=== PATIENT | female | born 2000 | race Caucasian/White ===

== ENCOUNTER 2020-04-12 06:12 | Emergency (ER) | payer BC, OTHER ==
[~2020-04-12] VITALS: Ht 172.7 cm; Wt 77.3 kg
[~2020-04-12 06:12] MED LIST: ALL10TAB29 PO; AUGM875T28 PO; BENA25CA4 PO; IBUP-1114 PO; LIDVISCBTL SSP; MAPA500T2 PO; PRENTAB9 PO
[2020-04-12] MEDS: ACETAMINOPHEN 500 MG TAB PO ONE (07:16)
[2020-04-12 07:28] VITALS: BP 113/85
== END 2020-04-12 07:29 | disposition home or self-care (01) ==
LOC: M ED 06:12
DX: S39.012A Strain of muscle, fascia and tendon of lower back, initial encounter (principal); X50.9XXA Other and unspecified overexertion or strenuous movements or postures, initial encounter; Y92.129 Unspecified place in nursing home as the place of occurrence of the external cause; Z91.040 Latex allergy status

== ENCOUNTER 2020-10-19 17:56 | Emergency (ER) | payer OTHER ==
[~2020-10-19] VITALS: Ht 172.7 cm; Wt 80.9 kg
[~2020-10-19 17:56] MED LIST changes: -ALL10TAB29 PO; +CETI-24 PO
[2020-10-19 20:37] LABS: CK-MB VALUE MASS < 1.0 NG/ML (<3.6); CPK CREATINE PHOSPHOKINASE 91 U/L (26-192); TROPONIN I < 0.02 NG/ML (< 0.10)
--- NOTE | 2020-10-19 20:47 | ECGEPIP ---
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
[2020-10-19 20:51] LABS: BASO % 0.2 % (0.0-1.0); EOS # 0.1 10^3/uL (0.0-0.5); EOS % 0.7 % (0.0-3.0); HEMATOCRIT 42.1 % (36.0-47.0); HEMOGLOBIN 13.7 g/dl (12.0-15.5); LYMPH % 16.2 % (24.0-44.0); MEAN CORPUSCULAR HEMOGLOBIN 28.5 pg (27.0-33.0); MEAN CORPUSCULAR HGB CONC 32.5 g/dl (32.0-36.5); MEAN CORPUSCULAR VOLUME 87.7 fl (80.0-96.0); MONO # 0.6 10^3/uL (0.0-0.8); MONO % 4.7 % (0.0-5.0); NEUTROPHILS # 9.5 10^3/uL (1.5-8.5); NEUTROPHILS % 77.8 % (36.0-66.0); PLATELET COUNT, AUTOMATED 293 10^3/uL (150-450); WHITE BLOOD COUNT 12.2 10^3/uL (4.0-10.0)
[2020-10-19 21:05] LABS: ALBUMIN 3.6 GM/DL (3.2-5.2); ALT/SGPT 20 U/L (12-78); BILIRUBIN,DIRECT 0.2 MG/DL (0.0-0.2); BILIRUBIN,TOTAL 0.9 MG/DL (0.2-1.0); BLOOD UREA NITROGEN 5 MG/DL (7-18); CALCIUM LEVEL 9.4 MG/DL (8.5-10.1); CARBON DIOXIDE LEVEL 25 MEQ/L (21-32); CHLORIDE LEVEL 107 MEQ/L (98-107); CREATININE FOR GFR 0.82 MG/DL (0.55-1.30); GLOMERULAR FILTRATION RATE > 60.0 (>60); GLUCOSE, FASTING 91 MG/DL (70-100); LIPASE 74 U/L (73-393); POTASSIUM SERUM 4.7 MEQ/L (3.5-5.1); SODIUM LEVEL 138 MEQ/L (136-145); TOTAL PROTEIN 7.4 GM/DL (6.4-8.2)
[2020-10-19 21:07] LABS: HCG, SERUM QUALITATIVE POSITIVE (NEGATIVE)
[2020-10-19 21:46] LABS: HCG, SERUM QUANTITATIVE 1876 MIU/ML
--- NOTE | 2020-10-19 23:10 | REPVR ---
PROCEDURE INFORMATION: Exam: US First Trimester, Transabdominal Exam date and time: 10/19/2020 10:54 PM Age: 20 years old Clinical indication: complicated by abdominal or pelvic pain; Left lower quadrant; First trimester; Gestational age or lmp: Unknown; ; Additional info: Llq abd pain, +preg TECHNIQUE: Imaging protocol: Real-time transabdominal obstetrical ultrasound of the maternal pelvis and a first trimester , less than 14 weeks 0 days, with image documentation. COMPARISON: No relevant prior studies available. FINDINGS: Gestation: There is a small ovoid fluid collection within the endometrium with no yolk sac or pole seen. Mean sac size is 3 mm suggesting an age of 4 weeks 6 days. MATERNAL: Uterus: TheThe uterus measures 8.4 cm in its cephalocaudad dimension and 4.4 x 5.1 cm in its AP and lateral dimensions. The endometrium measures 10 mm. Cervix: Unremarkable. Right adnexa: The right ovary measures 3.0 x 1.8 x 2.4 cm and demonstrates normal blood flow. Left adnexa: The left ovary measures 3.6 x 2.3 x 2.4 cm with a complex nodule measuring 1.9 x 2.0 x 1.7 cm. There is left ovarian blood flow. Intraperitoneal space: No intraperitoneal free fluid. IMPRESSION: 1. Small ovoid fluid collection within the endometrium which may reflect an early gestational sac which by size suggests an age of 4 weeks 6 days. No yolk sac or pole is seen. Follow-up ultrasound in 2 weeks may be of benefit for further evaluation. 2. Question of right ovarian corpus luteum cyst. Electronically signed by: Kin Barrera On 10/19/2020 23:10:11 PM
[2020-10-19 23:40] VITALS: BP 123/73
== END 2020-10-19 23:46 | disposition home or self-care (01) ==
LOC: M ED 17:56
DX: O26.899 Other specified pregnancy related conditions, unspecified trimester (principal); O99.891 Other specified diseases and conditions complicating pregnancy; R07.89 Other chest pain; R07.1 Chest pain on breathing; Z91.040 Latex allergy status
CPT/HCPCS: 76801; 80048; 80076; 81001; 82550; 82553; 83605; 83690; 84702; 84703; 85025; 85379; 93005; 99284; U0002

== ENCOUNTER 2020-11-17 06:19 | Emergency (ER) | payer OTHER ==
[~2020-11-17] VITALS: Ht 175.3 cm; Wt 79.5 kg
[2020-11-17 07:07] LABS: APPEARANCE, URINE HAZY (CLEAR); BACTERIA, URINE AUTO 1+ (NEGATIVE); BILIRUBIN, URINE AUTO NEGATIVE (NEGATIVE); BLOOD, URINE BLOOD NEGATIVE (NEGATIVE); COLOR, URINE STRAW (YELLOW); GLUCOSE, URINE (UA) AUTO NEGATIVE (NEGATIVE); KETONE, URINE AUTO NEGATIVE (NEGATIVE); LEUKOCYTE ESTERASE, URINE AUTO 1+ (NEGATIVE); NITRITE, URINE AUTO NEGATIVE (NEGATIVE); PROTEIN, URINE AUTO NEGATIVE (NEGATIVE); RBC, URINE AUTO 3 /HPF (0-3); SPECIFIC GRAVITY URINE AUTO 1.004 (1.002-1.035); SQUAMOUS EPITHELIAL CELL UR AU 9 /HPF (0-6); UROBILINOGEN, URINE AUTO 0.2 mg/dL (0.0-2.0); WBC, URINE AUTO 7 /HPF (0-3)
--- NOTE | 2020-11-17 07:36 | REPVR ---
PROCEDURE INFORMATION: Exam: US First Trimester, Transabdominal Exam date and time: 11/17/2020 7:23 AM Age: 20 years old Clinical indication: Pain and injury or trauma; Other: Hit by PT; Work related; Blunt trauma; Lower; complicated by abdominal or pelvic pain; First trimester; Gestational age or lmp: 9; Injury date: 11/17/2020; ; Additional info: Cramping, 1st trimester, HX miscarriage TECHNIQUE: Imaging protocol: Real-time transabdominal obstetrical ultrasound of the maternal pelvis and a first trimester , less than 14 weeks 0 days, with image documentation. COMPARISON: 1ST TRIMESTER US 10/19/2020 10:41 PM FINDINGS: Gestation: Single intrauterine gestational sac. Embryonic/ heart rate: 157 bpm. Placenta: Adjacent to the gestational sac on the right is a 1.9 x 1.3 x 0.6 cm anechoic focus which could represent subchorionic hemorrhage. BIOMETRY: Gestational age (AUA): pole with mean crown-rump length of 21.6 mm, corresponding to an estimated gestational age of 8 weeks 6 days. MATERNAL: Uterus: Unremarkable. Right adnexa: The right ovary measures 1.5 x 2.0 cm and appears unremarkable. Left adnexa: The left ovary measures 3.0 x 2.8 x 2.0 cm and appears unremarkable. Intraperitoneal space: No demonstrated free fluid. IMPRESSION: Single viable intrauterine gestation with estimated gestational age of 8 weeks 6 days. Small anechoic focus adjacent to the gestational sac could represent subchorionic hemorrhage. Recommend follow-up. Electronically signed by: Hudson Wynn On 11/17/2020 07:36:13 AM
[2020-11-17 08:06] VITALS: BP 117/71
== END 2020-11-17 07:59 | disposition home or self-care (01) ==
LOC: M ED 06:19
DX: O26.891 Other specified pregnancy related conditions, first trimester (principal); Z3A.08 8 weeks gestation of pregnancy; Z91.040 Latex allergy status

== ENCOUNTER 2021-05-22 11:54 | Outpatient (CLI) | payer OTHER ==
[~2021-05-22] VITALS: Ht 172.7 cm; Wt 85.1 kg
[2021-05-22 12:33] VITALS: BP 88/54
[2021-05-22 14:59] LABS: APPEARANCE, URINE HAZY (CLEAR); BACTERIA, URINE AUTO 2+ (NEGATIVE); BILIRUBIN, URINE AUTO NEGATIVE (NEGATIVE); BLOOD, URINE BLOOD NEGATIVE (NEGATIVE); COLOR, URINE YELLOW (YELLOW); GLUCOSE, URINE (UA) AUTO NEGATIVE (NEGATIVE); KETONE, URINE AUTO NEGATIVE (NEGATIVE); LEUKOCYTE ESTERASE, URINE AUTO 3+ (NEGATIVE); NITRITE, URINE AUTO NEGATIVE (NEGATIVE); PROTEIN, URINE AUTO NEGATIVE (NEGATIVE); RBC, URINE AUTO 2 /HPF (0-3); SPECIFIC GRAVITY URINE AUTO 1.002 (1.002-1.035); SQUAMOUS EPITHELIAL CELL UR AU 7 /HPF (0-6); UROBILINOGEN, URINE AUTO 0.2 mg/dL (0.0-2.0); WBC, URINE AUTO 18 /HPF (0-3)
[2021-05-22] MEDS ORDERED: CEPHALEXIN 500 MG CAP PO SCH (16:05)
[2021-05-22 16:13] VITALS: BP 94/52
[2021-05-22 16:39] LABS: HEMATOCRIT 33.3 % (36.0-47.0); HEMOGLOBIN 11.1 g/dl (12.0-15.5); MEAN CORPUSCULAR HEMOGLOBIN 30.4 pg (27.0-33.0); MEAN CORPUSCULAR HGB CONC 33.3 g/dl (32.0-36.5); MEAN CORPUSCULAR VOLUME 91.2 fl (80.0-96.0); PLATELET COUNT, AUTOMATED 193 10^3/uL (150-450); RED BLOOD COUNT 3.65 10^6/uL (4.00-5.40)
[2021-05-22] MEDS ORDERED: PRENTAB9 PO (16:53)
[2021-05-22 16:59] LABS: ALBUMIN 2.6 GM/DL (3.2-5.2); ALT/SGPT 13 U/L (12-78); BILIRUBIN,TOTAL 0.6 MG/DL (0.2-1.0); BLOOD UREA NITROGEN 4 MG/DL (7-18); CALCIUM LEVEL 8.2 MG/DL (8.5-10.1); CARBON DIOXIDE LEVEL 28 MEQ/L (21-32); CHLORIDE LEVEL 108 MEQ/L (98-107); CREATININE FOR GFR 0.58 MG/DL (0.55-1.30); GLOMERULAR FILTRATION RATE > 60.0 (>60); GLUCOSE, FASTING 101 MG/DL (70-100); POTASSIUM SERUM 3.9 MEQ/L (3.5-5.1); SODIUM LEVEL 140 MEQ/L (136-145); TOTAL PROTEIN 5.6 GM/DL (6.4-8.2)
[2021-05-22 17:13] LABS: HEMOGLOBIN A1c 4.7 %
[2021-05-22] MEDS ORDERED: CEPH500C PO (17:21)
--- NOTE | 2021-05-22 17:48 | IPNPDOC ---
Text Note Date of Service The patient was seen on 05/22/21. NOTE Outpatient 21yo G [id number] TARIQ 06/23/2021 presents @ 35w3d from work with reports of dizziness, nausea, vomiting and vaginal pressure. "Almost passed out." Reports only eating a donut today and "2 gallons water." Cat I tracing, rare UC Bedside sono shows breech presentation UA + evidence UTI Bloodwork essentially WNL, no significant anemia Keflex PO started, script sent to pharmacy with instructions Discharged home. Keep appt next week. VS,Fishbone, I+O VS, Fishbone, I+O Laboratory Tests 05/22/21 16:18 Vital Signs Date Time Temp Pulse Resp B/P (MAP) Pulse Ox O2 Delivery O2 Flow Rate FiO2 05/22/21 16:13 98.0 85 16 94/52 (66) Elke Corley CNM May 22, 2021 17:48
== END 2021-05-22 17:26 | disposition home or self-care (01) ==
LOC: M LDO 11:54
PROVIDERS: ATTEND Advanced Practice Midwife
DX: O23.593 Infection of other part of genital tract in pregnancy, third trimester (principal); O21.8 Other vomiting complicating pregnancy; Z3A.35 35 weeks gestation of pregnancy; O26.893 Other specified pregnancy related conditions, third trimester; R42 Dizziness and giddiness; O32.1XX0 Maternal care for breech presentation, not applicable or unspecified; Z91.040 Latex allergy status; Z79.899 Other long term (current) drug therapy

== ENCOUNTER → 2021-05-29 | Outpatient (CLI) | payer OTHER ==
[~2021-05-29] MED LIST changes: +CEPH500C PO
[2021-05-29 10:44] LABS: BASO % 0.4 % (0.0-1.0); EOS # 0.1 10^3/uL (0.0-0.5); EOS % 1.4 % (0.0-3.0); HEMATOCRIT 33.1 % (36.0-47.0); HEMOGLOBIN 10.9 g/dl (12.0-15.5); LYMPH # 1.4 10^3/uL (1.5-5.0); LYMPH % 18.4 % (24.0-44.0); MEAN CORPUSCULAR HGB CONC 32.9 g/dl (32.0-36.5); MEAN CORPUSCULAR VOLUME 91.2 fl (80.0-96.0); MONO # 0.4 10^3/uL (0.0-0.8); MONO % 5.4 % (2.0-8.0); NEUTROPHILS # 5.7 10^3/uL (1.5-8.5); NEUTROPHILS % 73.2 % (36.0-66.0); PLATELET COUNT, AUTOMATED 172 10^3/uL (150-450); RED BLOOD COUNT 3.63 10^6/uL (4.00-5.40); WHITE BLOOD COUNT 7.7 10^3/uL (4.0-10.0)
== END ==
LOC: M LAB 08:30
PROVIDERS: ATTEND Obstetrics & Gynecology Obstetrics
DX: Z34.83 Encounter for supervision of other normal pregnancy, third trimester (principal)

== ENCOUNTER 2021-05-31 21:07 | Outpatient (CLI) | payer OTHER ==
[~2021-05-31] VITALS: Ht 172.7 cm; Wt 85.3 kg
[2021-05-31 21:19] VITALS: BP 121/74
--- NOTE | 2021-05-31 23:02 | IPNPDOC ---
Text Note Date of Service The patient was seen on 05/31/21. NOTE Labor and Delivery Triage Note: S: 21-year-old 2 para 1 at 36 weeks 4 days estimated gestational age presents with c/o pelvic pressure and pain. Denies vaginal bleeding or LOF. Reports active movement. O: vss, AF no ctx Cat 1 tracing Gen: well appearing, NAD Abd: gravid, soft, nttp cx: 1 cm/50% effaced/-3/breech A/P: 21-year-old at 36 and 4, not in PTL reassuring status -home with PTL precautions and FKCs. -f/u at nxt OB appt Kathy Thornton MD VS,Charles, I+O VS, Charles I+O Vital Signs Date Time Temp Pulse Resp B/P (MAP) Pulse Ox O2 Delivery O2 Flow Rate FiO2 05/31/21 21:19 98.4 87 16 121/74 (90) KATHY THORNTON MD. May 31, 2021 23:02
== END 2021-05-31 23:03 | disposition home or self-care (01) ==
LOC: M LDO 21:07
PROVIDERS: ATTEND Obstetrics & Gynecology
DX: O47.03 False labor before 37 completed weeks of gestation, third trimester (principal); Z3A.36 36 weeks gestation of pregnancy; O26.893 Other specified pregnancy related conditions, third trimester; R10.2 Pelvic and perineal pain

== ENCOUNTER 2021-07-15 04:10 | Emergency (ER) | payer OTHER ==
[~2021-07-15] VITALS: Ht 172.7 cm; Wt 76.5 kg
[2021-07-15] MEDS ORDERED: IBUP-1022 PO (04:51)
[2021-07-15 05:07] LABS: BASO % 0.2 % (0.0-1.0); EOS # 0.1 10^3/uL (0.0-0.5); EOS % 0.6 % (0.0-3.0); HEMOGLOBIN 13.5 g/dl (12.0-15.5); LYMPH # 0.9 10^3/uL (1.5-5.0); LYMPH % 5.3 % (24.0-44.0); MEAN CORPUSCULAR HEMOGLOBIN 29.4 pg (27.0-33.0); MEAN CORPUSCULAR HGB CONC 33.8 g/dl (32.0-36.5); MEAN CORPUSCULAR VOLUME 87.1 fl (80.0-96.0); MONO % 5.9 % (2.0-8.0); NEUTROPHILS # 14.3 10^3/uL (1.5-8.5); NEUTROPHILS % 87.5 % (36.0-66.0); PLATELET COUNT, AUTOMATED 297 10^3/uL (150-450); RED BLOOD COUNT 4.59 10^6/uL (4.00-5.40); WHITE BLOOD COUNT 16.4 10^3/uL (4.0-10.0)
[2021-07-15 05:30] LABS: BLOOD UREA NITROGEN 7 MG/DL (7-18); CALCIUM LEVEL 8.9 MG/DL (8.5-10.1); CARBON DIOXIDE LEVEL 22 MEQ/L (21-32); CHLORIDE LEVEL 108 MEQ/L (98-107); CK-MB VALUE MASS 1.6 NG/ML (<3.6); CPK CREATINE PHOSPHOKINASE 67 U/L (26-192); CREATININE FOR GFR 0.95 MG/DL (0.55-1.30); GLOMERULAR FILTRATION RATE > 60.0 (>60); GLUCOSE, FASTING 121 MG/DL (70-100); MB/CK RELATIVE INDEX 2.39 (< OR =4); POTASSIUM SERUM 3.9 MEQ/L (3.5-5.1); SODIUM LEVEL 139 MEQ/L (136-145); TROPONIN I < 0.02 NG/ML (< 0.10)
--- NOTE | 2021-07-15 05:58 | REPVR ---
PROCEDURE INFORMATION: Exam: XR Chest Exam date and time: 07/15/2021 4:46 AM Age: 21 years old Clinical indication: Pain; Other: Not specified; Additional info: Chest pain TECHNIQUE: Imaging protocol: XR of the chest. Views: 1 view. COMPARISON: No relevant prior studies available. FINDINGS: Limitations: The tips of the apices were not fully included. Lungs: Unremarkable. No consolidation. Pleural spaces: Unremarkable. No pleural effusion. No pneumothorax. Heart/Mediastinum: Unremarkable. No cardiomegaly. Bones/joints: Unremarkable. IMPRESSION: No evidence of acute pleural or parenchymal disease. Electronically signed by: Codi Tuttle On 07/15/2021 05:57:20 AM
[2021-07-15] MEDS ORDERED: NS 1,000 ML IV ONE (06:25)
[2021-07-15 07:20] LABS: RSV AMPLIFICATION NEGATIVE (NEGATIVE)
[2021-07-15] MEDS ORDERED: ACETAMINOPHEN 325 MG TAB PO ONE (07:20)
[2021-07-15] MEDS ORDERED: ISOVUE-370 76% 100ML VIAL As Ordered ONE (07:43)
--- NOTE | 2021-07-15 08:10 | REPVR ---
PROCEDURE INFORMATION: Exam: CTA Chest With Contrast Exam date and time: 07/15/2021 7:55 AM Age: 21 years old Clinical indication: Pain; Chest pressure; Additional info: Sob/recent surgery/cp TECHNIQUE: Imaging protocol: Computed tomographic angiography of the chest with contrast. 3D rendering (Not supervised by radiologist): MIP and/or 3D reconstructed images were created by the technologist. Radiation optimization: All CT scans at this facility use at least one of these dose optimization techniques: automated exposure control; mA and/or kV adjustment per patient size (includes targeted exams where dose is matched to clinical indication); or iterative reconstruction. Contrast material: ISO 370; Contrast volume: 75 ml; Contrast route: INTRAVENOUS (IV); COMPARISON: CR PORTABLE CHEST X-RAY 07/15/2021 4:39 AM FINDINGS: Limitations: There is a small amount of motion artifact. Pulmonary arteries: The pulmonary arteries are not enlarged. No filling defects are seen to indicate an acute pulmonary embolism. Aorta: There is no thoracic aortic aneurysm or evidence of dissection. Lungs: Mild ground-glass attenuation in the dependent regions of the bilateral lower lobes is probably due to incomplete expansion and mild subsegmental atelectasis. There is no significant consolidation. Pleural spaces: No pleural effusions or pneumothorax identified. Heart: The heart is normal in size. Lymph nodes: No lymphadenopathy is seen. Bones/joints: No suspicious osseous lesions. No acute fractures. Soft tissues: Unremarkable. IMPRESSION: No evidence of acute pulmonary embolism. Electronically signed by: Codi Tuttle On 07/15/2021 08:10:35 AM
[2021-07-15 08:30] VITALS: BP 110/67
[2021-07-15] MEDS ORDERED: GI COCKTAIL 50ML BTL(HYOSCYAMINE/MAALOX/LIDOCAINE VISCOUS)(1:3:1) PO ONE (08:30)
--- NOTE | 2021-07-16 18:41 | ECGEPIP ---
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
== END 2021-07-15 09:05 | disposition home or self-care (01) ==
LOC: M ED 04:10
DX: R07.89 Other chest pain (principal); R06.02 Shortness of breath; D72.819 Decreased white blood cell count, unspecified; Z91.040 Latex allergy status
CPT/HCPCS: 71045; 71275; 80048; 82550; 82553; 85025; 87631; 93005; 93041; 94760; 96360; 99285; Q9967

== ENCOUNTER 2022-02-11 02:44 | Emergency (ER) | payer OTHER ==
[~2022-02-11] VITALS: Ht 172.7 cm; Wt 75.7 kg
[~2022-02-11 02:44] MED LIST changes: +IBUP-1022 PO
[2022-02-11 02:45] VITALS: BP 133/79
[2022-02-11] MEDS ORDERED: OMEP-173 (02:54)
== END 2022-02-11 05:02 | disposition left against medical advice (07) ==
LOC: M ED 02:44
DX: Z53.21 Procedure and treatment not carried out due to patient leaving prior to being seen by health care provider (principal)

== ENCOUNTER → 2022-06-10 | Outpatient (REF) | payer OTHER ==
[~2022-06-10] MED LIST changes: +OMEP-173
[2022-06-10 13:42] LABS: HEMATOCRIT 42.6 % (36.0-47.0); HEMOGLOBIN 14.3 g/dl (12.0-15.5); MEAN CORPUSCULAR HEMOGLOBIN 30.1 pg (27.0-33.0); MEAN CORPUSCULAR HGB CONC 33.6 g/dl (32.0-36.5); MEAN CORPUSCULAR VOLUME 89.7 fl (80.0-96.0); PLATELET COUNT, AUTOMATED 224 10^3/uL (150-450); RED BLOOD COUNT 4.75 10^6/uL (4.00-5.40); WHITE BLOOD COUNT 7.8 10^3/uL (4.0-10.0)
[2022-06-10 14:36] LABS: HCG, SERUM QUANTITATIVE 25432 MIU/ML
[2022-06-10 15:07] LABS: HEPATITIS C VIRUS ABY INDEX 0.1 INDEX (<0.8)
[2022-06-10 16:08] LABS: HIV 1&2 SCREEN CENTAUR NEGATIVE (NEGATIVE)
== END ==
LOC: M LAB REF 12:17
PROVIDERS: ATTEND Advanced Practice Midwife
DX: O36.80X0 Pregnancy with inconclusive fetal viability, not applicable or unspecified (principal); Z32.01 Encounter for pregnancy test, result positive

== ENCOUNTER → 2022-11-29 | Outpatient (REF) | payer OTHER | LOC: M LAB REF 16:31 | PROVIDERS: ATTEND Obstetrics & Gynecology | DX: Z34.83 Encounter for supervision of other normal pregnancy, third trimester (principal) ==

== ENCOUNTER → 2022-11-29 | Outpatient (CLI) | payer OTHER | LOC: M WHC 08:56 | PROVIDERS: ATTEND Obstetrics & Gynecology | DX: Z34.82 Encounter for supervision of other normal pregnancy, second trimester (principal); Z3A.31 31 weeks gestation of pregnancy; Z36.2 Encounter for other antenatal screening follow-up ==

== ENCOUNTER → 2022-12-23 | Outpatient (CLI) | payer OTHER ==
[2022-12-23 12:23] LABS: BASO % 0.2 % (0.0-1.0); EOS # 0.1 10^3/uL (0.0-0.5); EOS % 1.6 % (0.0-3.0); HEMATOCRIT 36.2 % (36.0-47.0); HEMOGLOBIN 11.8 g/dl (12.0-15.5); LYMPH # 1.5 10^3/uL (1.5-5.0); MEAN CORPUSCULAR HEMOGLOBIN 29.4 pg (27.0-33.0); MEAN CORPUSCULAR HGB CONC 32.6 g/dl (32.0-36.5); MEAN CORPUSCULAR VOLUME 90.3 fl (80.0-96.0); MONO # 0.4 10^3/uL (0.0-0.8); MONO % 4.4 % (2.0-8.0); NEUTROPHILS # 6.1 10^3/uL (1.5-8.5); NEUTROPHILS % 74.3 % (36.0-66.0); PLATELET COUNT, AUTOMATED 206 10^3/uL (150-450); RED BLOOD COUNT 4.01 10^6/uL (4.00-5.40); WHITE BLOOD COUNT 8.2 10^3/uL (4.0-10.0)
== END ==
LOC: M LAB 10:45
PROVIDERS: ATTEND Advanced Practice Midwife
DX: Z34.83 Encounter for supervision of other normal pregnancy, third trimester (principal)

== ENCOUNTER 2023-01-06 18:08 | Outpatient (CLI) | payer OTHER ==
[~2023-01-06] VITALS: Ht 175.3 cm; Wt 89.8 kg
[2023-01-06 18:29] VITALS: BP 130/74
[2023-01-06 18:57] LABS: APPEARANCE, URINE CLEAR (CLEAR); BILIRUBIN, URINE AUTO NEGATIVE (NEGATIVE); BLOOD, URINE BLOOD NEGATIVE (NEGATIVE); COLOR, URINE YELLOW (YELLOW); GLUCOSE, URINE (UA) AUTO NEGATIVE (NEGATIVE); KETONE, URINE AUTO NEGATIVE (NEGATIVE); LEUKOCYTE ESTERASE, URINE AUTO NEGATIVE (NEGATIVE); NITRITE, URINE AUTO NEGATIVE (NEGATIVE); PROTEIN, URINE AUTO NEGATIVE (NEGATIVE); SPECIFIC GRAVITY URINE AUTO 1.005 (1.002-1.035); UROBILINOGEN, URINE AUTO 0.2 mg/dL (0.0-2.0)
[2023-01-06 19:01] LABS: BACTERIA, URINE AUTO NEGATIVE (NEGATIVE); RBC, URINE AUTO 0 /HPF (0-3); SQUAMOUS EPITHELIAL CELL UR AU 1 /HPF (0-6); WBC, URINE AUTO 0 /HPF (0-3)
== END 2023-01-06 19:27 | disposition home or self-care (01) ==
LOC: M LDO 18:08
PROVIDERS: ATTEND Obstetrics & Gynecology
DX: O26.893 Other specified pregnancy related conditions, third trimester (principal); M54.50 Low back pain, unspecified; R10.2 Pelvic and perineal pain; Z3A.37 37 weeks gestation of pregnancy
CPT/HCPCS: 59025; 81001; G0463

== ENCOUNTER → 2025-08-13 | Outpatient (REF) | payer OTHER ==
[~2025-08-13] MED LIST changes: -IBUP-1022 PO; +IBUP600T42 PO
== END ==
LOC: M LAB REF 17:19
PROVIDERS: ATTEND Physician Assistant
DX: J06.9 Acute upper respiratory infection, unspecified (principal)